=== PATIENT | male | born 1975 | race Hispanic/Latino ===

== ENCOUNTER 2024-02-22 12:44 | Outpatient (CLI) | payer OTHER | END 2024-02-22 12:45 | disposition home or self-care (01) | LOC: ULT 12:44 | PROVIDERS: ATTEND Internal Medicine Hematology & Oncology | DX: R16.2 Hepatomegaly with splenomegaly, not elsewhere classified (principal); D69.59 Other secondary thrombocytopenia | CPT/HCPCS: 76700 ==

== ENCOUNTER 2024-08-05 08:53 | Outpatient (CLI) | payer OTHER | END 2024-08-05 08:54 | disposition home or self-care (01) | LOC: MRI 08:53 | PROVIDERS: ATTEND Nurse Practitioner Family | DX: R51.9 Headache, unspecified (principal); R90.82 White matter disease, unspecified; I67.82 Cerebral ischemia | CPT/HCPCS: 70551 ==